=== PATIENT | female | born 1995 | race Caucasian/White ===

== ENCOUNTER → 2017-12-23 | Outpatient (REF) | payer BC | LOC: M LAB REF 10:28 | DX: J02.9 Acute pharyngitis, unspecified (principal) | CPT/HCPCS: 87081 ==

== ENCOUNTER → 2018-10-18 | Outpatient (REF) | LOC: M LAB LCGH 09:51 | PROVIDERS: ATTEND Obstetrics & Gynecology | DX: Z12.4 Encounter for screening for malignant neoplasm of cervix (principal) ==

== ENCOUNTER 2019-01-16 21:47 | Emergency (ER) | payer BC ==
[~2019-01-16] VITALS: Ht 165.1 cm; Wt 77.3 kg
[2019-01-16 22:29] LABS: BASO % 0.1 % (0.0-1.0); HEMATOCRIT 35.1 % (36.0-47.0); HEMOGLOBIN 12.5 g/dl (12.0-15.5); LYMPH # 0.9 10^3/uL (1.5-6.5); LYMPH % 10.7 % (24.0-44.0); MEAN CORPUSCULAR HEMOGLOBIN 31.4 pg (27.0-33.0); MEAN CORPUSCULAR HGB CONC 35.6 g/dl (32.0-36.5); MEAN CORPUSCULAR VOLUME 88.2 fl (80.0-96.0); MONO # 0.9 10^3/uL (0.0-0.8); MONO % 11.7 % (0.0-5.0); NEUTROPHILS # 6.1 10^3/uL (1.8-7.7); NEUTROPHILS % 77.1 % (36.0-66.0); PLATELET COUNT, AUTOMATED 210 10^3/uL (150-450); RED BLOOD COUNT 3.98 10^6/uL (4.00-5.40)
[2019-01-16 22:50] LABS: BLOOD UREA NITROGEN 10 MG/DL (7-18); CALCIUM LEVEL 8.4 MG/DL (8.5-10.1); CARBON DIOXIDE LEVEL 27 MEQ/L (21-32); CHLORIDE LEVEL 101 MEQ/L (98-107); CREATININE FOR GFR 0.84 MG/DL (0.55-1.30); GLOMERULAR FILTRATION RATE > 60.0 (>60); GLUCOSE, FASTING 102 MG/DL (70-100); POTASSIUM SERUM 3.5 MEQ/L (3.5-5.1); SODIUM LEVEL 136 MEQ/L (136-145)
[2019-01-16 23:16] LABS: MONO SCRN NEGATIVE (NEGATIVE)
[2019-01-16] MEDS ORDERED: ACETAMINOPHEN 500 MG TAB PO ONE (23:45)
[2019-01-17 02:00] VITALS: BP 114/68
== END 2019-01-17 02:48 | disposition left against medical advice (07) ==
LOC: M ED 21:47
DX: Z53.29 Procedure and treatment not carried out because of patient's decision for other reasons (principal)